=== PATIENT | female | born 1975 | race Caucasian/White ===

== ENCOUNTER 2018-06-16 20:27 | Emergency (ER) | payer BC ==
--- NOTE | 2018-06-16 21:11 | EDM.PDOC ---
ED HPI GENERAL MEDICAL PROBLEM - General Chief Complaint: Lower Extremity Injury/Pain Stated Complaint: LEFT FOOT PIAN Time Seen by Provider: 06/16/18 20:37 Source of Information: Reports: Patient, RN Notes Reviewed History Limitations: Reports: No Limitations - History of Present Illness INITIAL COMMENTS - FREE TEXT/NARRATIVE: Patient is a 42-year-old female who presents to the ED for the evaluation of left foot pain. The patient states that the pain is mostly located on the plantar surface of her left foot over the fourth and fifth toes. She does not note any recent trauma to the area. She states that she has plantars fasciitis in her right foot, and thought maybe she could be developing this into her left foot. He states that the pain is worse with walking or bearing weight. 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 She has not taken any pain medications for pain relief. She states that she does not have a history of gout, nor is she diabetic. She would rate her pain at a 5 out of 10. The pain does not shoot up her leg at all. She did notice some mild swelling and warmth as well to her left foot. Left Foot Pain Score (Numeric/FACES): 5 - Related Data Allergies Allergy/AdvReac Type Severity Reaction Status Date / Time No Known Allergies Allergy Verified 06/16/18 20:36 Home Meds: Home Meds . [No Known Home Meds] 12/23/13 [History] Past Medical History - Past Health History Medical/Surgical History: Denies Medical/Surgical History Social & Family History - Tobacco Use Smoking Status *Q: Never Smoker Second Hand Smoke Exposure: No - Caffeine Use Caffeine Use: Reports: Coffee - Recreational Drug Use Recreational Drug Use: No Review of Systems - Review of Systems Review Of Systems: See Below Constitutional: Reports: No Symptoms Eyes: Reports: No Symptoms Ears: Reports: No Symptoms Nose: Reports: No Symptoms Mouth/Throat: Reports: No Symptoms Respiratory: Reports: No Symptoms Cardiovascular: Reports: No Symptoms GI/Abdominal: Reports: No Symptoms Genitourinary: Reports: No Symptoms Musculoskeletal: Reports: No Symptoms Skin: Denies: Wound Neurological: Denies: Numbness, Pre-Existing Deficit, Tingling Psychiatric: Reports: No Symptoms ED EXAM, GENERAL - Physical Exam Exam: See Below Exam Limited By: No Limitations General Appearance: Alert, WD/WN, No Apparent Distress Eye Exam: Bilateral Eye: Normal Inspection Respiratory/Chest: No Respiratory Distress, Lungs Clear, Normal Breath Sounds, No Accessory Muscle Use, Chest Non-Tender Cardiovascular: Normal Peripheral Pulses, Regular Rate, Rhythm, No Murmur Peripheral Pulses: 3+: Dorsalis Pedis (L), Dorsalis Pedis (R) Extremities: Normal Inspection, Normal Capillary Refill, Limited Range of Motion (Due to pain in left foot.), Increased Warmth (Left foot is mildly more warm than the right foot. There is some slight swelling noted to the entire foot.) Neurological: Alert, Oriented, Normal Cognition, No Motor/Sensory Deficits Psychiatric: Normal Affect, Normal Mood Skin Exam: Warm, Dry, Intact, Normal Color, No Rash, Increased Warmth (Of left foot) Course - Vital Signs Last Recorded V/S: Last Vital Signs Temp 98.4 F 06/16/18 20:34 Pulse 100 06/16/18 20:34 Resp 16 06/16/18 20:34 BP 142/90 H 06/16/18 20:34 Pulse Ox 100 06/16/18 20:34 - Orders/Labs/Meds Orders: Active Orders 24 hr Category Date Time Status Foot Comp Min 3V Lt [CR] Stat Exams 06/16/18 21:11 Ordered - Re-Assessments/Exams Free Text/Narrative Re-Assessment/Exam: 06/16/18 21:20 Patient presents to the ED for the evaluation of left foot pain. I have ordered a left foot x-ray for the evaluation of the possibility of a possible stress fracture versus other soft tissue injury like plantar fasciitis or tendinitis. There is some mild warmth noted to the left foot, this is more suspicious for inflammatory response in the area. 06/16/18 22:24 The rapid did relieve the patient's foot x-ray, and does not see any sign of acute fracture at this time. I will give the patient general recommendations and discharge the patient home. Departure - Departure Time of Disposition: 22:26 Disposition: Home, Self-Care 01 Condition: Fair Clinical Impression: Left foot pain - Discharge Information *PRESCRIPTION DRUG MONITORING PROGRAM REVIEWED*: No *COPY OF PRESCRIPTION DRUG MONITORING REPORT IN PATIENT BRENT: No Instructions: Musculoskeletal Pain Referrals: PCP,None [Primary Care Provider] - Forms: ED Department Discharge Additional Instructions: You have been evaluated in the ED tonight for your left foot pain. Your x-ray did not demonstrate any sign of acute fracture at this time. Your pain may likely be due to developing plantar fascitis. Recommend that you obtain better footwear that is appropriate for plantar fasciitis. This would include insoles that would provide good arch support. You may ice the area as tolerated to provide further relief, you may elevate the leg as needed for further pain relief. You may take 600 mg ibuprofen or 500 mg Tylenol every 6 hours as needed for pain relief. Please return to the ED if her symptoms change or worsen. - My Orders Last 24 Hours: My Active Orders 06/16/18 21:11 Foot Comp Min 3V Lt [CR] Stat - Assessment/Plan Last 24 Hours: My Active Orders 06/16/18 21:11 Foot Comp Min 3V Lt [CR] Stat
--- NOTE | 2018-06-17 20:18 | CR ---
Left foot: Four views of the left foot were obtained. Comparison: No prior foot exam. Joint spaces are preserved. No calcaneal spurs are seen. No fracture, dislocation or other bony abnormality is seen. Impression: 1. No abnormality is appreciated on left foot exam. Diagnostic code #1 I agree with preliminary report issued by [facility] ([facility] report finalized on 06/16/18, 11:17 PM Central Time)
== END 2018-06-16 22:37 | disposition home or self-care (01) ==
LOC: JD.ED 20:27
DX: M79.672 Pain in left foot (principal)
CPT/HCPCS: 73630-26-LT; 73630-LT; 99282; 99283-25